=== PATIENT | female | born 1950 | race Caucasian/White ===

== ENCOUNTER 2016-10-31 18:43 | Inpatient (IN) | payer BC ==
[2016-10-31] MEDS ORDERED: ALBUTEROL SO4 2.5/IPRATROPIUM 0.5 INH SOL 3 ML VIAL.NEB. NEB ONE ×3 (20:16→22:29)
[2016-10-31] MEDS ORDERED: methylPREDNISolone NA SUCC 125 MG/2 ML VIAL IVPB ONE (20:17)
[2016-10-31] MEDS ORDERED: methylPREDNISolone NA SUCC 125 MG/2 ML VIAL ONE (20:24)
--- NOTE | 2016-10-31 20:29 | PDOC ---
History of Present Illness - History of Present Illness Initial Comments: 10/31/16 20:57 The patient is a 66 year old female, with a significant past medical history of hypertension and hyperlipidemia, who presents to the emergency department sent from PCP for hematochezia for two days. The patient states she has never experienced rectal bleeding in the past and states that her stool has been dark black for about 2 days. The patient states she had a rectal exam and stool guaiac that tested positive for blood and was referred to the ED today. The patient also reports exertional dyspnea. She denies chest pain, headache and dizziness. She denies fever, chills, nausea , vomit, diarrhea and constipation. She denies dysuria, frequency, urgency and hematuria. Allergies: Penicillin Social history: Tobacco use (1 pack daily) PCP - Dr. Marvel Chen ([phone]) <Vanda Rangel - Last Filed: 11/01/16 00:33> <Forrest Ybarra - Last Filed: 11/01/16 02:07> - General Chief Complaint: Rectal Bleed Stated Complaint: PCP SENT/WEAKNESS Time Seen by Provider: 10/31/16 19:39 Past History <Vanda Rangel - Last Filed: 11/01/16 00:33> - Past Medical History HTN: Yes Thyroid Disease: Yes - Psycho/Social/Smoking Cessation Hx Suicidal Ideation: No Smoking History: Current every day smoker Number of Cigarettes Smoked Daily: 20 Information on smoking cessation initiated: Yes 'Breaking Loose' booklet given: 10/31/16 Hx Alcohol Use: No Drug/Substance Use Hx: No Substance Use Type: None <Forrest Ybarra - Last Filed: 11/01/16 02:07> - Past Medical History Allergies/Adverse Reactions: Allergies Allergy/AdvReac Type Severity Reaction Status Date / Time Penicillins Allergy Verified 10/31/16 18:47 Home Medications: Ambulatory Orders NK [No Known Home Medication] 10/31/16 Review of Systems - Review of Systems Able to Perform ROS?: Yes Comments:: 10/31/16 20:57 CONSTITUTIONAL: No fever, no chills, no fatigue EYES: No visual changes ENT: No ear pain, no sore throat CARDIOVASCULAR: No chest pain, no palpitations RESPIRATORY: (+) cough and SOB GI: (+) hematochezia. No abdominal pain, no nausea, no vomiting, no constipation , no diarrhea GENITOURINARY: No dysuria, no frequency, no hematuria MUSKULOSKELETAL: No backpain, no joint pain, no myalgias SKIN: No rash NEURO: No headache <Vanda Rangel - Last Filed: 11/01/16 00:33> *Physical Exam - Vital Signs Last Vital Signs Temp Pulse Resp BP Pulse Ox 98.3 F 81 19 99/59 10/31/16 18:45 10/31/16 18:45 10/31/16 18:45 10/31/16 18:45 - Physical Exam Comments: 10/31/16 20:58 CONSTITUTIONAL: Well-appearing; well-nourished; in no apparent distress HEAD: Normocephalic; atraumatic EYES: PERRL; EOM intact ENMT: External appears normal; normal oropharynx NECK: Supple; non-tender; no cervical lymphadenopathy CARD: Normal S1, S2; no murmurs, rubs, or gallops RESP: Normal chest excursion with respiration; breath sounds clear and equal bilaterally; no wheezes, rhonchi, or rales ABD: Soft, non-distended; non-tender; no palpable organomegaly, no palpable hernias EXT: Normal ROM in all four extremities; non-tender to palpation; distal pulses intact SKIN: Warm, dry, no rash NEURO: No focal neurological deficiencies <Vanda Rangel - Last Filed: 11/01/16 00:33> - Vital Signs Last Vital Signs Temp Pulse Resp BP Pulse Ox 98.3 F 81 19 99/59 10/31/16 18:45 10/31/16 18:45 10/31/16 18:45 10/31/16 18:45 <Forrest Ybarra - Last Filed: 11/01/16 02:07> Heart Score/ECG Review - [place] Comment: 11/01/16 00:33 ECG was reviewed by Dr. Ybarra at 21:16 Impression: normal sinus rhythm Vent Rate: 78 bpm AL Interval: 160 ms QTc: 437 ms <Vanda Rangel - Last Filed: 11/01/16 00:33> ED Treatment Course - LABORATORY CBC & Chemistry Diagram: 10/31/16 21:00 10/31/16 21:00 <Vanda Rangel - Last Filed: 11/01/16 00:33> - LABORATORY CBC & Chemistry Diagram: 10/31/16 21:00 10/31/16 21:00 - RADIOLOGY Radiology Studies Ordered: Category Date Time Status CHEST PA & LAT [RAD] Stat Radiology 10/31/16 20:16 Ordered <Forrest Ybarra - Last Filed: 11/01/16 02:07> Medical Decision Making - Medical Decision Making 10/31/16 22:42 Dr. Marvel Chen was called at this time and a message was left with the phone answering service for a doctor to doctor consult. <Juan CarlosVanda - Last Filed: 11/01/16 00:33> - Medical Decision Making 11/01/16 00:29 Patient is a 66-year-old female with history of COPD, hypertension and hyperlipidemia who presents with several days of melena and lightheadedness. Patient also complaining of worsening shortness of breath with cough productive of clear sputum. Patient had been seen by her primary care physician for Dr. Weber who performed a stool guaiac which was noted to be positive. In the ER, patient is noted to be awake and alert, mildly tachypneic, with decreased air entry bilaterally and and expiratory wheezing. Patient is also noted to be significantly hypoxemic on room air with room air oxygen saturation of 84%, improving to 92% on 5 L via nasal cannula. Patient received continuous nebulizer therapy, Solu-Medrol and magnesium sulfate with mild improvement in her respiratory status. Oxygen saturation is improved to 94% on 5 L via nasal cannula. Chest x-ray reveals no evidence of infiltrate or effusion. CBC reveals elevated hemoglobin and hematocrit consistent with previous values. I suspect elevated hemoglobin and hematocrit are related to compensatory mechanism due to patient's COPD. I discussed the case with Dr. Mcnair. Patient will require rule out of pulmonary embolism considering the severity of hypoxemia and admission for further treatment of acute COPD exacerbation. 11/01/16 02:04 Patient reassessed. Patient is resting comfortably. Patient's oxygen saturation is noted to be 93% on 6 L via nasal cannula. Lung exam reveals persistent rhonchi bilaterally with decreased air entry bilaterally. CT of chest shows no evidence of acute PE, subsegmental atelectasis is noted. Patient 's symptoms are consistent with acute COPD exacerbation. Will admit as planned. <Forrest Ybarra - Last Filed: 11/01/16 02:07> *DC/Admit/Observation/Transfer - Attestations Scribe Attestion: 10/31/16 20:58 Documentation prepared by Vanda Rangel, acting as medical biller/coder for Forrest Ybarra MD <Vanda Rangel - Last Filed: 11/01/16 00:33> - Discharge Dispostion Admit: Yes - Attestations Physician Attestion: 11/01/16 00:29 The documentation was prepared by the scribe under my direct supervision. I have reviewed the documentation which correctly represents the findings, medical decision-making and critical action taken by me. <Forrest Ybarra - Last Filed: 11/01/16 02:07> Diagnosis at time of Disposition: Chronic obstructive pulmonary disease with acute exacerbation, Melena - Discharge Dispostion Condition at time of disposition: Fair - Referrals Referrals: Marvel Chen MD [Primary Care Provider] -
[2016-10-31 21:09] LABS: BASOPHIL 0.7 % (0-2.0); EOSINOPHIL 0.2 % (0-4.5); MCH 31.1 pg (25.7-33.7); MCHC 32.8 g/dl (32.0-36.0); MEAN CELL VOLUME 94.7 fl (80-96); MEAN PLT VOLUME 8.1 fl (7.5-11.1); NEUTROPHILS 49.9 % (42.8-82.8); PLATELET COUNT 211 K/MM3 (134-434); RDW 12.4 % (11.6-15.6); WHITE BLOOD COUNT 6.1 K/mm3 (4.0-10.0)
[2016-10-31 21:24] LABS: INR 1.09 (0.82-1.09)
[2016-10-31 21:36] LABS: ALBUMIN 3.9 g/dl (3.4-5.0); ANION GAP 8 (8-16); BILIRUBIN,TOTAL 0.4 mg/dL (0.2-1.0); CALCIUM 8.8 mg/dL (8.5-10.1); CO2 30 mmol/L (21-32); CREATININE 1.1 mg/dL (0.55-1.02); GLUCOSE,RANDOM 89 mg/dL (74-106); SGOT/AST 38 U/L (15-37); SGPT/ALT 55 U/L (12-78); TOT PROT 7.7 g/dl (6.4-8.2)
[2016-10-31 21:37] LABS: ALK PHOS 75 U/L (45-117)
[2016-10-31] MEDS ORDERED: SODIUM CHLORIDE 500 ML IV STA (21:49)
[2016-10-31] MEDS ORDERED: LEVOFLOXACIN 500 MG IVPB 100 ML IVPB ONE ×2 (22:29→22:44)
[2016-10-31] MEDS ORDERED: MAGNESIUM SULF 50% (8.12 MEQ/2 ML-1 GM VIAL) IVPB ONE (22:29)
[2016-10-31] MEDS ORDERED: MAGNESIUM SULF 50% (8.12 MEQ/2 ML-1 GM VIAL) ONE (22:43)
[2016-10-31 22:52] LABS: TROPONIN I < 0.02 ng/ml (0.00-0.05)
[2016-11-01] MEDS ORDERED: PANTOPRAZOLE SODIUM 40 MG in SODIUM CHLORIDE 100 ML IVPB ONE (00:59)
[2016-11-01] MEDS ORDERED: ALBUTEROL SO4 0.083% IH SOL 2.5 MG/3 ML VIAL.NEB. NEB ONE ×2 (00:59→02:13)
[2016-11-01] MEDS ORDERED: PANTOPRAZOLE SODIUM 100 ML IVPB ONE (02:13)
--- NOTE | 2016-11-01 04:18 | HP ---
CHIEF COMPLAINT: melena & SIMPS[facility] PCP: Dr. Chen HISTORY OF PRESENT ILLNESS: This is a 66 year old female with a past medical history of HTN, HLD and hypothyroidism who presented to the ED with c/o dark stools x 2 days. She also reports dyspnea on exertion. She has had a cough for about 3 weeks, productive with whitish/clear phlegm. She reports that she had begun to feel better around [place] so she went back to work the next week but worsened again around New Years and has been out of work since. She went to her PCP's office today for the black stool, who did a rectal and stool for guaiac which were both positive. She reports some nausea and loss of appetite but denies abdominal pain or vomiting. Denies chest pain or palpitations. ER course was notable for: (1) WBC 6.1 (2) H/H 16.6/50.7 (3) CTA chest negative for PE (4) SPO2 84%RA increased to 94 on 5LNC Recent Travel: pt denies PAST MEDICAL HISTORY: HTN HLD Hypothyroid Pt DENIES any h/o COPD and states she is on no inhalers or breathing medications at home PAST SURGICAL HISTORY: pt denies any Social History: Smokin PPD Alcohol: pt denies Drugs: pt denies Family History: mother age 68, declined rapidly after , had Crohns disease and CHF father age 69, brain tumor brother and sister with no known medical problems Allergies Penicillins Allergy (Verified 10/31/16 18:47) HOME MEDICATIONS: 3 Medication Instructions Recorded NK [No Known Home Medication] 10/31/16 REVIEW OF SYSTEMS CONSTITUTIONAL: Present: loss of appetite Absent: fever, chills, diaphoresis, generalized weakness, malaise, weight change HEENT: Absent: rhinorrhea, nasal congestion, throat pain, throat swelling, difficulty swallowing, mouth swelling, ear pain, eye pain, visual changes CARDIOVASCULAR: Absent: chest pain, syncope, palpitations, irregular heart rate, lightheadedness , peripheral edema RESPIRATORY: Present: cough, shortness of breath, dyspnea with exertion Absent: orthopnea, wheezing, stridor, hemoptysis GASTROINTESTINAL: Present: nausea, melena Absent: abdominal pain, abdominal distension, vomiting, diarrhea, constipation, hematochezia GENITOURINARY: Absent: dysuria, frequency, urgency, hesitancy, hematuria, flank pain, genital pain MUSCULOSKELETAL: Absent: myalgia, arthralgia, joint swelling, back pain, neck pain SKIN: Absent: rash, itching, pallor HEMATOLOGIC/IMMUNOLOGIC: Absent: easy bleeding, easy bruising, lymphadenopathy, frequent infections ENDOCRINE: Absent: unexplained weight gain, unexplained weight loss, heat intolerance, cold intolerance NEUROLOGIC: Absent: headache, focal weakness or paresthesias, dizziness, unsteady gait, seizure, mental status changes, bladder or bowel incontinence PSYCHIATRIC: Absent: anxiety, depression, suicidal or homicidal ideation, hallucinations. PHYSICAL EXAMINATION Vital Signs - 24 hr 3 10/31/16 10/31/16 11/01/16 18:45 22:30 00:00 Temperature 98.3 F Pulse Rate 81 Pulse Rate [ 85 68 Radial] Respiratory 19 18 18 Rate Blood Pressure 99/59 Blood Pressure 115/80 118/80 [Left Arm] O2 Sat by Pulse 100 92 L Oximetry (%) 3 11/01/16 04:39 Temperature Pulse Rate Pulse Rate [ 72 Radial] Respiratory 18 Rate Blood Pressure Blood Pressure 120/68 [Left Arm] O2 Sat by Pulse 90 L Oximetry (%) GENERAL: Awake, alert, and fully oriented, in no acute distress. HEAD: Normal with no signs of trauma. EYES: Pupils equal, round and reactive to light, extraocular movements intact, sclera anicteric, conjunctiva clear. No lid lag. EARS, NOSE, THROAT: Ears normal, nares patent, oropharynx clear without exudates. Moist mucous membranes. NECK: Normal range of motion, supple without lymphadenopathy, JVD, or masses. LUNGS: diminished, poor air movement, inspiratory and expiratory wheezing all lung [place] HEART: Regular rate and rhythm, normal S1 and S2 without murmur, rub or gallop. ABDOMEN: Soft, nontender, not distended, normoactive bowel sounds, no guarding, no rebound, no masses. No hepatomegaly or splenomegaly. MUSCULOSKELETAL: Normal range of motion at all joints. No bony deformities or tenderness. No CVA tenderness. UPPER EXTREMITIES: 2+ pulses, warm, well-perfused. No cyanosis. No clubbing. Cap refill <2 seconds. No peripheral edema. LOWER EXTREMITIES: 2+ pulses, warm, well-perfused. No calf tenderness. No peripheral edema. NEUROLOGICAL: Cranial nerves II-XII intact. Normal speech. Normal gait. PSYCHIATRIC: Cooperative. Good eye contact. Appropriate mood and affect. SKIN: Warm, dry, normal turgor, no rashes or lesions noted. Laboratory Results - last 24 hr 3 10/31/16 10/31/16 10/31/16 21:00 21:00 21:00 WBC 6.1 RBC 5.35 H Hgb 16.6 H Hct 50.7 H MCV 94.7 MCHC 32.8 RDW 12.4 Plt Count 211 D MPV 8.1 Neutrophils % 49.9 Lymphocytes % 36.6 Monocytes % 12.6 H Eosinophils % 0.2 Basophils % 0.7 INR 1.09 Sodium 137 Potassium 3.7 Chloride 99 Carbon Dioxide 30 Anion Gap 8 BUN 29 H D Creatinine 1.1 H D Creat Clearance w eGFR 50.01 Random Glucose 89 Calcium 8.8 Total Bilirubin 0.4 D AST 38 H D ALT 55 Alkaline Phosphatase 75 D Creatine Kinase 143 Troponin I < 0.02 Total Protein 7.7 Albumin 3.9 Blood Type O POSITIVE Antibody Screen Negative CXR: Impression: Cardiomegaly, no acute disease CTA chest: Impression: Scattered areas of subsegmental atelectasis are seen. No consolidations are observed. NO PULMONARY EMBOLISM. ECG: NSR rate 78, QTC 437, NO acute ST/T changes. possible old inferior and anterior infarcts ASSESSMENT/PLAN: 66yF with PMH HTN, HLD, Hypothyroidism who presented to the ED with melena and dyspnea on exertion and hypoxia. She is being admitted for COPD exacerbation and GI bleed. COPD exacerbation - given solumedrol 125mg IV, duoneb x 3, magnesium sulfate 2g IV in ED - cont solumedrol 60mg Q6H, taper as tolerated - duonebs q4h - if no improvement consider ABT for acute bronchitis Melena/GI bleed - protonix 40mg IVPB BID - NPO except meds - GI consult HTN - cont home medications HLD - cont home medications DVT PPX - hold anticoagulation given GI bleed, encourage ambulation FEN - NS @75cc/hr while NPO - repeat BMP ordered for 6am with mag and phos levels - NPO for now. Dispo: Pt currently requires inpatient care. Visit type - Emergency Visit Emergency Visit: Yes ED Registration Date: 11/01/16 Care time: The patient presented to the Emergency Department on the above date and was hospitalized for further evaluation of their emergent condition. - New Patient This patient is new to me today: Yes Date on this admission: 10/31/16 - Critical Care Critical Care patient: No
[2016-11-01] MEDS: methylPREDNISolone NA SUCC 40 MG/1 ML VIAL IVPB SCH ×4 (05:31→21:00)
[2016-11-01] MEDS: SODIUM CHLORIDE 1,000 ML IV SCH ×2 (05:32→16:12)
[2016-11-01] MEDS ORDERED: HEPARIN NA (PORCINE) 5,000 UNITS/ML 1ML VIAL SQ SCH (06:00)
[2016-11-01] MEDS: ALBUTEROL SO4 2.5/IPRATROPIUM 0.5 INH SOL 3 ML VIAL.NEB. NEB SCH ×5 (06:31→22:00)
[2016-11-01 08:41] LABS: BASOPHIL 0.2 % (0-2.0); MCH 32.2 pg (25.7-33.7); MCHC 33.6 g/dl (32.0-36.0); MEAN CELL VOLUME 95.7 fl (80-96); NEUTROPHILS 74.3 % (42.8-82.8); PLATELET COUNT 179 K/MM3 (134-434); RDW 12.3 % (11.6-15.6); WHITE BLOOD COUNT 2.5 K/mm3 (4.0-10.0)
[2016-11-01 08:58] LABS: CALCIUM 8.9 mg/dL (8.5-10.1); CREATININE 0.9 mg/dL (0.55-1.02); MAGNESIUM 2.8 mg/dL (1.8-2.4); PHOSPHOROUS 3.9 mg/dL (2.5-4.9)
[2016-11-01] MEDS: PANTOPRAZOLE SODIUM 100 ML IVPB SCH ×2 (11:35→22:57)
--- NOTE | 2016-11-01 12:11 | EKG ---
Test Reason : Blood Pressure : / mmHG Vent. Rate : 078 BPM Atrial Rate : 078 BPM P-R Int : 160 ms QRS Dur : 098 ms QT Int : 384 ms P-R-T Axes : 043 031 074 degrees QTc Int : 437 ms NORMAL SINUS RHYTHM POOR DATA QUALITY, INTERPRETATION MAY BE ADVERSELY AFFECTED POOR R WAVE PROGRESSION Confirmed by PILO RYAN MD ([id number]) on 11/01/2016 12:11:19 PM Referred By: Confirmed By:PILO RYAN MD
--- NOTE | 2016-11-01 13:59 | CONSULT ---
Consult Consult Specialty:: GI Referred by:: Hospitalist Reason for Consultation:: Melena - History of Present Illness Chief Complaint: Melena History of Present Illness: 66 F with h/o severe COPD, HLD, HTN, sent by her PCP for reported melena for 2 days. She denies NSAIDs . She has had "sinusitis" for the past 2 weeks but denies pain meds. She is being treated for COPD with steroids at this time. - History Source History Provided By: Patient, Medical Record Limitations to Obtaining History: No Limitations - Past Medical History Pulmonary: Yes: COPD, O2 Dependent - Alcohol/Substance Use Hx Alcohol Use: No - Smoking History Smoking history: Current every day smoker Aproximately how many cigarettes per day: 20 Home Medications - Allergies Allergies/Adverse Reactions: Allergies Allergy/AdvReac Type Severity Reaction Status Date / Time Penicillins Allergy Verified 10/31/16 18:47 - Home Medications Home Medications: Ambulatory Orders Amlodipine Besylate 5 mg PO BID 11/01/16 Isosorbide Mononitrate [Isosorbide Mononitrate ER] 60 mg PO 1000 11/01/16 Levothyroxine [Synthroid -] 75 mcg PO 0700 11/01/16 Liothyronine Sodium [Cytomel -] 5 mcg PO 0700 11/01/16 Metoprolol Succinate [Toprol Xl] 50 mg PO 2200 11/01/16 Metoprolol Succinate [Toprol Xl] 100 mg PO 1000 11/01/16 Non-Formulary 1 tab PO 0700 11/01/16 Physical Exam-GI Vital Signs: Vital Signs Temperature 98.1 F 11/01/16 08:46 Pulse Rate 75 11/01/16 12:00 Respiratory Rate 18 11/01/16 12:00 Blood Pressure 118/67 11/01/16 12:00 O2 Sat by Pulse Oximetry (%) 93 L 11/01/16 12:00 Constitutional: Yes: Obese HENT: Yes: Normocephalic Neck: Yes: Supple Cardiovascular: Yes: Regular Rate and Rhythm Respiratory: Yes: Wheezes ...Palpate: Yes: Soft. No: Tenderness Labs: CBC, BMP 11/01/16 08:00 11/01/16 08:00 INR, PTT INR 1.09 (0.82-1.09) 10/31/16 21:00 Hepatic Panel Total Bilirubin 0.4 mg/dL (0.2-1.0) D 10/31/16 21:00 AST 38 U/L (15-37) H D 10/31/16 21:00 ALT 55 U/L (12-78) 10/31/16 21:00 Alkaline Phosphatase 75 U/L (45-117) D 10/31/16 21:00 Albumin 3.9 g/dl (3.4-5.0) 10/31/16 21:00 Assessment/Plan Patient with UGIB now stopped. Hgb 16. Unclear etiology Rec EGD once respiratory status stabilized Protonix drip as pat on steroids Clear liquid diet
[2016-11-01 17:49] VITALS: BMI 33.2
[2016-11-02] MEDS: ALBUTEROL SO4 2.5/IPRATROPIUM 0.5 INH SOL 3 ML VIAL.NEB. NEB SCH ×6 (02:00→22:35)
[2016-11-02] MEDS: methylPREDNISolone NA SUCC 40 MG/1 ML VIAL IVPB SCH ×3 (02:34→15:18)
[2016-11-02 07:44] LABS: CALCIUM 9.4 mg/dL (8.5-10.1); CREATININE 0.7 mg/dL (0.55-1.02); MAGNESIUM 2.1 mg/dL (1.8-2.4); PHOSPHOROUS 3.7 mg/dL (2.5-4.9)
[2016-11-02] MEDS: PANTOPRAZOLE SODIUM 100 ML IVPB SCH ×2 (09:53→21:43)
--- NOTE | 2016-11-02 11:49 | PN ---
GI Progress Note Subjective: chart reviewed, further hisotry revealed that patient has guaiac postive stool in the her doctors office, had 2 episodes of melena last night,for the past 10 hours there were no further bleeding noted, denies chest pain, LOC, near syncope , had URI since 3rd week of September, no NSAID and no Aspirin use - Objective Vital Signs: Vital Signs Temperature 97.9 F 11/02/16 07:40 Pulse Rate 79 11/02/16 07:40 Respiratory Rate 18 11/02/16 07:40 Blood Pressure 116/65 11/02/16 07:40 O2 Sat by Pulse Oximetry (%) 93 L 11/01/16 21:00 Constitutional: Obese Eyes: Yes: Conjunctiva Clear HENT: Yes: Atraumatic Neck: Yes: Supple Cardiovascular: Yes: Regular Rate and Rhythm Respiratory: Yes: CTA Bilaterally ...Palpate: Yes: Soft. No: Firm/Rigid, Guarding, Hepatomegaly, Mass, Pulsatile Mass, Splenomegaly, Tenderness Labs: CBC, BMP 11/01/16 08:00 11/02/16 06:00 INR, PTT INR 1.09 (0.82-1.09) 10/31/16 21:00 Problem List - Problems (1) Melena Assessment/Plan: --resolving R> for EGD Friday clear liquids for now, discussed clinical findings at length agreed with management Code(s): K92.1 - MELENA
[2016-11-02] MEDS: SODIUM CHLORIDE 1,000 ML IV SCH (13:18)
--- NOTE | 2016-11-02 16:01 | PN ---
Physical Exam: SUBJECTIVE: Patient seen and examined. She is feeling jittery because she has not had the correct ratio of carbs to protein. She denies further melena OBJECTIVE: Vital Signs Period Temp Pulse Resp BP Sys/Gonzalez Pulse Ox Last 24 Hr 97.5 F-98.1 F 70-81 18-20 105-138/60-78 93-95 PE Gen: fully conversational Neuro: alert, awake, cn 2-12intact Pulm: diminished, bi basilar rhonchi + cough + ns CV: s1 s2 rrr no mrg Abs: s nt nd +bs Ext: warm no edema Laboratory Results - last 24 hr 11/01/16 11/02/16 23:09 06:00 Sodium 144 Potassium 4.3 Chloride 102 Carbon Dioxide 30 Anion Gap 12 BUN 19 H D Creatinine 0.7 D POC Glucometer 170 Random Glucose 148 H D Calcium 9.4 Phosphorus 3.7 Magnesium 2.1 D Current Medications Generic Name Dose Route Start Last Admin Trade Name Freq PRN Reason Stop Dose Admin Albuterol/Ipratropium 1 amp 11/01/16 06:00 11/02/16 10:10 Duoneb - NEB 1 amp Q4HPO SHYANNE Administration Amlodipine Besylate 5 mg 11/02/16 22:00 Norvasc - PO BID SHYANNE Pantoprazole Sodium 100 mls @ 200 mls/hr 11/01/16 10:00 11/02/16 09:53 Protonix 40mg Ivpb (Pre-Docked) IVPB 200 mls/hr BID SHYANNE Administration Levofloxacin 100 mls @ 100 mls/hr 11/02/16 16:15 Levaquin 500 Mg Premixed Ivpb - IVPB DAILY SHYANNE Isosorbide Mononitrate 60 mg 11/02/16 16:30 Imdur - PO DAILY SHYANNE Levothyroxine Sodium 75 mcg 11/02/16 16:30 Synthroid - PO DAILY@0700 SHYANNE Liothyronine Sodium 5 mcg 11/02/16 16:30 Cytomel - PO DAILY@0700 SHYANNE Methylprednisolone Sodium Succinate 40 mg 11/03/16 02:00 Solu-Medrol - IVPB Q8H-IV SHYANNE Metoprolol Succinate 50 mg 11/02/16 22:00 Toprol Xl - PO HS SHAYNNE Metoprolol Succinate 100 mg 11/03/16 10:00 Toprol Xl - PO DAILY SHYANNE Assessment: 66 year old female with PMH HTN, HLD, Hypothyroidism admitted with melena, dyspnea on exertion and hypoxia. Plan: 1. COPD exacerbation - Wheezing improved - Taper medrol 40mg q8h - Resume levaquin 500mg daily (day 2) - Sputum cx - Duonebs q4 2. Melena/GI bleed - Pt states she remembers seeing traces of bright red blood on her TP before the melena event - Clears for now, if no bleeding advance diet in AM - Protonix BID - EGD Friday - GI assistance appreciated 3. HTN - Toprol xl 100mg AM - Toprol xl 50mg HS - Discontinue norvasc - Imdur 60mg daily 4. Hypothyroid - Synthroid 75mcg daily - Cytomel 5mcg daily - Check TSH level 5. DVT PPX - Hold AC Visit type - Emergency Visit Emergency Visit: Yes ED Registration Date: 11/01/16 Care time: The patient presented to the Emergency Department on the above date and was hospitalized for further evaluation of their emergent condition. - New Patient This patient is new to me today: Yes Date on this admission: 11/02/16 - Critical Care Critical Care patient: No
[2016-11-02] MEDS: ISOSORBIDE MONONITRATE 60 MG TAB.SR.24H (FP) PO SCH (17:45)
[2016-11-02] MEDS: LEVOFLOXACIN 500 MG IVPB 100 ML IVPB SCH (17:45)
[2016-11-02] MEDS: LEVOTHYROXINE NA 75 MCG TABLET (FP) PO SCH (17:45)
[2016-11-02] MEDS: LIOTHYRONINE SODIUM 5 MCG TABLET PO SCH (21:42)
[2016-11-02] MEDS: METOPROLOL SUCCINATE 50 MG TAB.SR.24H (FP) PO SCH (21:43)
[2016-11-02] MEDS ORDERED: METOPROLOL SUCCINATE 50 MG TAB.SR.24H (FP) PO SCH (22:00)
[2016-11-02] MEDS ORDERED: amLODIPine BESYLATE 5 MG TABLET (FP) PO SCH (22:00)
[2016-11-03] MEDS: methylPREDNISolone NA SUCC 40 MG/1 ML VIAL IVPB SCH ×3 (01:40→18:20)
[2016-11-03] MEDS ORDERED: PT OWN MED DRAWER 7, Y5N ONE (01:56)
[2016-11-03] MEDS: ALBUTEROL SO4 2.5/IPRATROPIUM 0.5 INH SOL 3 ML VIAL.NEB. NEB SCH ×6 (02:25→22:05)
[2016-11-03] MEDS: LIOTHYRONINE SODIUM 5 MCG TABLET PO SCH (06:55)
[2016-11-03] MEDS: LEVOTHYROXINE NA 75 MCG TABLET (FP) PO SCH (06:55)
[2016-11-03] MEDS ORDERED: LIOTHYRONINE SODIUM 5 MCG TABLET PO SCH (07:00)
[2016-11-03 07:30] LABS: BASOPHIL 0.1 % (0-2.0); MCH 32.2 pg (25.7-33.7); MCHC 33.8 g/dl (32.0-36.0); MEAN CELL VOLUME 95.5 fl (80-96); MEAN PLT VOLUME 8.1 fl (7.5-11.1); NEUTROPHILS 87.4 % (42.8-82.8); PLATELET COUNT 200 K/MM3 (134-434); RDW 12.7 % (11.6-15.6); WHITE BLOOD COUNT 8.8 K/mm3 (4.0-10.0)
[2016-11-03 08:02] LABS: CALCIUM 9.2 mg/dL (8.5-10.1); CREATININE 0.7 mg/dL (0.55-1.02)
[2016-11-03 08:10] LABS: THYROID STIMULATING HORMONE 0.11 uIU/ml (0.358-3.74)
[2016-11-03] MEDS ORDERED: ISOSORBIDE MONONITRATE 60 MG TAB.SR.24H (FP) PO SCH (10:00)
[2016-11-03] MEDS ORDERED: METOPROLOL SUCCINATE 100 MG TAB.SR.24H (FP) PO SCH (10:00)
[2016-11-03] MEDS: PANTOPRAZOLE SODIUM 100 ML IVPB SCH ×2 (10:27→22:05)
[2016-11-03] MEDS: ISOSORBIDE MONONITRATE 60 MG TAB.SR.24H (FP) PO SCH (10:27)
[2016-11-03] MEDS: METOPROLOL SUCCINATE 100 MG TAB.SR.24H (FP) PO SCH (10:27)
[2016-11-03] MEDS: LEVOFLOXACIN 500 MG IVPB 100 ML IVPB SCH (10:32)
--- NOTE | 2016-11-03 10:40 | PN ---
Physical Exam: SUBJECTIVE: Patient seen and examined. She stated she did not sleep well because of going to the bathroom and having bowel movements. SOB improved 24 Events: + guiac stool OBJECTIVE: Vital Signs Period Temp Pulse Resp BP Sys/Gonzalez Pulse Ox Last 24 Hr 97.4 F-98.4 F 70-85 18-20 116-137/60-71 93 PE Gen: fully conversational Neuro: alert, awake, cn 2-12intact Pulm: diminished, bi basilar crackles + dry cough, inspiration improved CV: s1 s2 rrr no mrg Abs: s nt nd +bs Ext: warm no edema Laboratory Results - last 24 hr 11/02/16 11/03/16 11/03/16 18:00 06:00 06:00 WBC 8.8 D RBC 4.28 Hgb 13.8 D Hct 40.8 MCV 95.5 MCHC 33.8 RDW 12.7 Plt Count 200 MPV 8.1 Neutrophils % 87.4 H Lymphocytes % 10.0 D Monocytes % 2.5 L Eosinophils % 0.0 Basophils % 0.1 Sodium 142 Potassium 3.5 Chloride 105 Carbon Dioxide 28 Anion Gap 9 BUN 14 D Creatinine 0.7 Random Glucose 165 H Calcium 9.2 TSH 0.11 L Stool Occult Blood Positive Active Medications Generic Name Dose Route Start Last Admin Trade Name Yefri PRN Reason Stop Dose Admin Albuterol/Ipratropium 1 amp 11/01/16 06:00 11/03/16 06:35 Duoneb - NEB 1 amp Q4HPO SHYANNE Administration Pantoprazole Sodium 100 mls @ 200 mls/hr 11/01/16 10:00 11/03/16 10:27 Protonix 40mg Ivpb (Pre-Docked) IVPB 200 mls/hr BID SHYANNE Administration Levofloxacin 100 mls @ 100 mls/hr 11/02/16 16:15 11/03/16 10:32 Levaquin 500 Mg Premixed Ivpb - IVPB 100 mls/hr DAILY SHYANNE Administration Isosorbide Mononitrate 60 mg 11/02/16 16:30 11/03/16 10:27 Imdur - PO 60 mg DAILY SHYANNE Administration Levothyroxine Sodium 75 mcg 11/02/16 16:30 11/03/16 06:55 Synthroid - PO 75 mcg DAILY@0700 SHYANNE Administration Liothyronine Sodium 5 mcg 11/02/16 16:30 11/03/16 06:55 Cytomel - PO 5 mcg DAILY@0700 SHYANNE Administration Methylprednisolone Sodium Succinate 40 mg 11/03/16 02:00 11/03/16 10:27 Solu-Medrol - IVPB 40 mg Q8H-IV SHYANNE Administration Metoprolol Succinate 50 mg 11/02/16 22:00 11/02/16 21:43 Toprol Xl - PO 50 mg HS SHYANNE Administration Metoprolol Succinate 100 mg 11/03/16 10:00 11/03/16 10:27 Toprol Xl - PO 100 mg DAILY SHYANNE Administration Assessment: 66 year old female with PMH HTN, HLD, Hypothyroidism admitted with melena, dyspnea on exertion and hypoxia. Plan: 1. COPD exacerbation - Medrol 40mg q8h, consider taper tomorrow - Levaquin 500mg daily (day 3) - Sputum cx pending - Duonebs q4 standing 2. Melena/GI bleed - Repeat + stool occult - Collect C diff - Continue clears, NPO after midnight - Protonix BID - For EGD tomorrow - GI seeing 3. HTN - Toprol xl 100mg AM - Toprol xl 50mg HS - Imdur 60mg daily 4. Hypothyroid - TSH level decreased - Will decrease synthroid 50mcg daily - Cytomel 5mcg daily - Recheck TSH in 6 weeks 5. DVT PPX - Hold AC d/t GI bleed Visit type - Emergency Visit Emergency Visit: Yes ED Registration Date: 11/01/16 Care time: The patient presented to the Emergency Department on the above date and was hospitalized for further evaluation of their emergent condition. - New Patient This patient is new to me today: No - Critical Care Critical Care patient: No
--- NOTE | 2016-11-03 16:07 | PN ---
GI Progress Note Subjective: no melena, tolerating full liquids, non-productive cough - Objective Vital Signs: Vital Signs Temperature 98.3 F 11/03/16 14:56 Pulse Rate 85 11/03/16 14:56 Respiratory Rate 20 11/03/16 14:56 Blood Pressure 114/61 11/03/16 14:56 O2 Sat by Pulse Oximetry (%) 93 L 11/03/16 12:27 Constitutional: Well Nourished Eyes: Yes: Conjunctiva Clear HENT: Yes: Atraumatic Neck: Yes: Supple Cardiovascular: Yes: Regular Rate and Rhythm Respiratory: Yes: CTA Bilaterally ...Palpate: Yes: Soft. No: Firm/Rigid, Guarding, Hepatomegaly, Mass, Pulsatile Mass, Splenomegaly, Tenderness Labs: CBC, BMP 11/03/16 06:00 11/03/16 06:00 INR, PTT INR 1.09 (0.82-1.09) 10/31/16 21:00 Problem List - Problems (1) Melena Assessment/Plan: resolved R> for EGD in am Code(s): K92.1 - MELENA
[2016-11-03] MEDS: METOPROLOL SUCCINATE 50 MG TAB.SR.24H (FP) PO SCH (22:07)
[2016-11-04] MEDS: methylPREDNISolone NA SUCC 40 MG/1 ML VIAL IVPB SCH ×3 (01:29→18:25)
[2016-11-04] MEDS: ALBUTEROL SO4 2.5/IPRATROPIUM 0.5 INH SOL 3 ML VIAL.NEB. NEB SCH ×6 (02:04→23:45)
[2016-11-04] MEDS: LIOTHYRONINE SODIUM 5 MCG TABLET PO SCH (06:03)
[2016-11-04] MEDS: LEVOTHYROXINE NA 50 MCG TABLET (FP) PO SCH (06:03)
[2016-11-04] MEDS ORDERED: LIDOCAINE HCL/PF 1% SDV 5ML VIAL ONE (07:49)
[2016-11-04 08:06] LABS: BASOPHIL 0.1 % (0-2.0); MCH 32.4 pg (25.7-33.7); MEAN CELL VOLUME 95.5 fl (80-96); MEAN PLT VOLUME 8.1 fl (7.5-11.1); NEUTROPHILS 89.8 % (42.8-82.8); PLATELET COUNT 215 K/MM3 (134-434); RDW 12.5 % (11.6-15.6)
[2016-11-04 08:20] LABS: CALCIUM 9.6 mg/dL (8.5-10.1); CREATININE 0.7 mg/dL (0.55-1.02)
--- NOTE | 2016-11-04 08:20 | PN ---
Progress Note (short form) - Note Progress Note: ADDENDUM: S/P EGD with finding of likely shon esophagitis, mild duodenitis in the duodenal bulb. Otherwise normal. No source of GI bleeding noted. Hgb has been relatively stable with drop since admission likely secondary to Will need colonoscopy. Will schedule for tomorrow AM
[2016-11-04] MEDS ORDERED: PT OWN MED DRAWER 7, Y5N ONE ×2 (11:17→18:43)
[2016-11-04] MEDS: PANTOPRAZOLE SODIUM 100 ML IVPB SCH ×2 (11:25→22:36)
[2016-11-04] MEDS: LEVOFLOXACIN 500 MG IVPB 100 ML IVPB SCH (11:25)
[2016-11-04] MEDS: METOPROLOL SUCCINATE 100 MG TAB.SR.24H (FP) PO SCH (11:25)
[2016-11-04] MEDS: ISOSORBIDE MONONITRATE 60 MG TAB.SR.24H (FP) PO SCH (11:25)
--- NOTE | 2016-11-04 13:07 | PN ---
Physical Exam: SUBJECTIVE: Patient seen and examined. She walking around the room, tolerating room air, in no acute distress. She denies discomfort or abdominal pain. OBJECTIVE: Vital Signs Period Temp Pulse Resp BP Sys/Gonzalez Pulse Ox Last 24 Hr 97.9 F-98.3 F 78-88 16-21 111-152/51-86 85-96 GENERAL: The patient is awake, alert, and fully oriented, in no acute distress. HEAD: Normal with no signs of trauma. EYES: sclera anicteric, conjunctiva clear. No ptosis. ENT: Ears normal, nares patent, oropharynx clear without exudates, moist mucous membranes. NECK: Trachea midline, full range of motion, supple. LUNGS: Bilateral lung sounds clear/diminished. No wheezing. HEART: Regular rate and rhythm, S1, S2 without murmur, rub or gallop. ABDOMEN: Soft, distended, + bowel sounds EXTREMITIES: 2+ pulses, warm, well-perfused. NEUROLOGICAL: Normal speech, gait not observed. PSYCH: Normal mood, normal affect. SKIN: Warm, dry, normal turgor, no rashes or lesions noted Laboratory Results - last 24 hr 11/03/16 11/04/16 11/04/16 22:12 06:05 06:05 WBC 8.0 RBC 4.58 Hgb 14.9 Hct 43.8 MCV 95.5 MCHC 34.0 RDW 12.5 Plt Count 215 MPV 8.1 Neutrophils % 89.8 H Lymphocytes % 7.4 L D Monocytes % 2.7 L Eosinophils % 0.0 Basophils % 0.1 Sodium 140 Potassium 3.9 Chloride 104 Carbon Dioxide 35 H D Anion Gap 1 L BUN 9 D Creatinine 0.7 POC Glucometer 137 Random Glucose 138 H Calcium 9.6 11/04/16 06:32 WBC RBC Hgb Hct MCV MCHC RDW Plt Count MPV Neutrophils % Lymphocytes % Monocytes % Eosinophils % Basophils % Sodium Potassium Chloride Carbon Dioxide Anion Gap BUN Creatinine POC Glucometer 135 Random Glucose Calcium Active Medications Generic Name Dose Route Start Last Admin Trade Name Freq PRN Reason Stop Dose Admin Albuterol/Ipratropium 1 amp 11/01/16 06:00 11/04/16 09:19 Duoneb - NEB 1 amp Q4HPO SHYANNE Administration Bisacodyl 10 mg 11/04/16 16:00 Dulcolax - PO 11/04/16 16:01 ONCE ONE Bisacodyl 10 mg 11/04/16 20:00 Dulcolax - PO 11/04/16 20:01 ONCE ONE Pantoprazole Sodium 100 mls @ 200 mls/hr 11/01/16 10:00 11/04/16 11:25 Protonix 40mg Ivpb (Pre-Docked) IVPB 200 mls/hr BID SHYANNE Administration Levofloxacin 100 mls @ 100 mls/hr 11/02/16 16:15 11/04/16 11:25 Levaquin 500 Mg Premixed Ivpb - IVPB 100 mls/hr DAILY SHYANNE Administration Isosorbide Mononitrate 60 mg 11/02/16 16:30 11/04/16 11:25 Imdur - PO 60 mg DAILY SHYANNE Administration Levothyroxine Sodium 50 mcg 11/04/16 07:00 11/04/16 06:03 Synthroid - PO Not Given DAILY@0700 SHYANNE Liothyronine Sodium 5 mcg 11/02/16 16:30 11/04/16 06:03 Cytomel - PO Not Given DAILY@0700 SHYANNE Methylprednisolone Sodium Succinate 40 mg 11/03/16 02:00 11/04/16 11:25 Solu-Medrol - IVPB 40 mg Q8H-IV SHYANNE Administration Metoprolol Succinate 50 mg 11/02/16 22:00 11/03/16 22:07 Toprol Xl - PO 50 mg HS SHYANNE Administration Metoprolol Succinate 100 mg 11/03/16 10:00 11/04/16 11:25 Toprol Xl - PO 100 mg DAILY SHYANNE Administration Nystatin 500,000 unit 11/04/16 14:00 Mycolog - PO TID SHYANNE Polyethylene Glycol 255 gm 11/04/16 16:00 Miralax (For Bowel Prep) - PO 11/04/16 16:01 ONCE ONE ASSESSMENT/PLAN: Patient is a 66 year old female with a significant past medical history of hypertension, hyperlipidemia and hypothyroidism who presented to the ER on 2015 with dark stools x 2 days, dyspnea on exertion and hypoxia. In the ED she reported a productive cough for apx 3 weeks with clear phlegm. She denies any abdominal pain, nausea, vomiting. She further denies any chest pain or palpitation. Pulmonary: COPD exacerbation - acute Assessment/Plan: On Solumedrol 40mg q8, Dubnebs, oxygen as needed and Levaquin 500mg daily (started on 11/02/2015). Will taper steroids to 30mg q8 and monitor Monitor respiratory status, oxygenation and response to steroid taper GI: Gi Bleed - acute Assessment/Plan: Had EGD today which showed findings likely shon esophagitis, mild duodenitis in the duodenal bulb On Protonix 40mg BID, colonoscopy tomorrow NPO at midnight Cardiology: Hyptertension - chronic Assessment/Plan: Hypertension controlled on Metoprolol XL 100mg daily, Toprol 50mg at HS and Imdur 60mg daily Monitor BPs F.E.N. Fluids: NPO at midnight, will order gentle hydration of NS @50cc/hr once NPO Electrolytes: within normal limits Nutrition: Clears, NPO at midnight Prophylaxis: DVT: ambulatory, AC contraindicated secondary to GI bleed GI: Protonix BID, Miralax bowel pre; for colonoscpy tomorrow Disposition: Requires inpatient hospitalization. Full Code. Visit type - Emergency Visit Emergency Visit: Yes ED Registration Date: 11/01/16 Care time: The patient presented to the Emergency Department on the above date and was hospitalized for further evaluation of their emergent condition. - New Patient This patient is new to me today: Yes Date on this admission: 11/04/16 - Critical Care Critical Care patient: No - Discharge Referral Referred to [facility] Med P.C.: No
[2016-11-04] MEDS: NYSTATIN 500,000 UNITS TABLET PO SCH ×2 (15:38→23:10)
[2016-11-04] MEDS ORDERED: BISACODYL 5 MG TABLET.DR (FP) PO ONE ×3 (16:00→22:45)
[2016-11-04] MEDS ORDERED: POLYETHYLENE GLYCOL 3350 255 GM BTL PO ONE (16:00)
--- NOTE | 2016-11-04 17:07 | EKG ---
Test Reason : Blood Pressure : / mmHG Vent. Rate : 078 BPM Atrial Rate : 078 BPM P-R Int : 176 ms QRS Dur : 098 ms QT Int : 382 ms P-R-T Axes : 067 053 072 degrees QTc Int : 435 ms NORMAL SINUS RHYTHM POSSIBLE LEFT ATRIAL ENLARGEMENT BORDERLINE ECG WHEN COMPARED WITH ECG OF 31-OCT-2016 21:10, NO SIGNIFICANT CHANGE WAS FOUND Confirmed by SAPPHIRE COHEN MD ([id number]) on 11/04/2016 5:06:57 PM Referred By: Confirmed By:SAPPHIRE COHEN MD
[2016-11-04] MEDS: METOPROLOL SUCCINATE 50 MG TAB.SR.24H (FP) PO SCH (22:51)
[2016-11-05] MEDS ORDERED: SODIUM CHLORIDE 1,000 ML IV SCH
[2016-11-05] MEDS: methylPREDNISolone NA SUCC 40 MG/1 ML VIAL IVPB SCH ×3 (01:10→21:43)
[2016-11-05] MEDS: ALBUTEROL SO4 2.5/IPRATROPIUM 0.5 INH SOL 3 ML VIAL.NEB. NEB SCH ×6 (02:20→23:00)
[2016-11-05] MEDS ORDERED: SODIUM PHOSPHATE/NA BIPHOS 133 ML ENEMA PR ONE (06:00)
[2016-11-05] MEDS: NYSTATIN 500,000 UNITS TABLET PO SCH ×3 (06:07→21:44)
[2016-11-05] MEDS: LIOTHYRONINE SODIUM 5 MCG TABLET PO SCH (06:07)
[2016-11-05] MEDS: LEVOTHYROXINE NA 50 MCG TABLET (FP) PO SCH (06:08)
[2016-11-05 06:53] LABS: BASOPHIL 0.1 % (0-2.0); MCH 32.3 pg (25.7-33.7); MEAN PLT VOLUME 7.9 fl (7.5-11.1); NEUTROPHILS 91.8 % (42.8-82.8); PLATELET COUNT 229 K/MM3 (134-434); RDW 12.6 % (11.6-15.6); WHITE BLOOD COUNT 7.6 K/mm3 (4.0-10.0)
[2016-11-05 08:02] LABS: ALBUMIN 3.6 g/dl (3.4-5.0); ALK PHOS 60 U/L (45-117); ANION GAP 12 (8-16); BILIRUBIN,TOTAL 0.7 mg/dL (0.2-1.0); CALCIUM 9.4 mg/dL (8.5-10.1); CO2 29 mmol/L (21-32); CREATININE 0.7 mg/dL (0.55-1.02); GLUCOSE,RANDOM 151 mg/dL (74-106); SGOT/AST 21 U/L (15-37); SGPT/ALT 57 U/L (12-78); TOT PROT 7.1 g/dl (6.4-8.2)
[2016-11-05] MEDS: KCL 10 MEQ IVPB 100 ML IVPB SCH ×2 (09:19→12:50)
[2016-11-05] MEDS: ISOSORBIDE MONONITRATE 60 MG TAB.SR.24H (FP) PO SCH (09:21)
[2016-11-05] MEDS: METOPROLOL SUCCINATE 100 MG TAB.SR.24H (FP) PO SCH (09:21)
[2016-11-05] MEDS: LEVOFLOXACIN 500 MG IVPB 100 ML IVPB SCH (09:22)
[2016-11-05] MEDS: PANTOPRAZOLE SODIUM 100 ML IVPB SCH ×2 (09:23→21:43)
--- NOTE | 2016-11-05 12:53 | PN ---
Physical Exam: SUBJECTIVE: Patient seen and examined. States she feels well, denies any pain or dyspnea. Awaiting colonoscopy. OBJECTIVE: GENERAL: The patient is awake, alert, and fully oriented, in no acute distress. HEAD: Normal with no signs of trauma. EYES: sclera anicteric, conjunctiva clear. No ptosis. ENT: Ears normal, nares patent, oropharynx clear without exudates, moist mucous membranes. NECK: Trachea midline, full range of motion, supple. LUNGS: Bilateral lung sounds clear/diminished. No wheezing. HEART: Regular rate and rhythm, S1, S2 without murmur, rub or gallop. ABDOMEN: Soft, distended, + bowel sounds EXTREMITIES: 2+ pulses, warm, well-perfused. NEUROLOGICAL: Normal speech, gait not observed. PSYCH: Normal mood, normal affect. SKIN: Warm, dry, normal turgor, no rashes or lesions noted Vital Signs Period Temp Pulse Resp BP Sys/Gonzalez Pulse Ox Last 24 Hr 97.4 F-98.2 F 54-86 18-20 120-145/66-87 90-96 Laboratory Results - last 24 hr 11/05/16 11/05/16 05:35 05:35 WBC 7.6 RBC 4.94 Hgb 15.9 H Hct 46.9 H MCV 95.0 MCHC 34.0 RDW 12.6 Plt Count 229 MPV 7.9 Neutrophils % 91.8 H Lymphocytes % 5.9 L D Monocytes % 2.2 L Eosinophils % 0.0 Basophils % 0.1 Sodium 143 Potassium 3.3 L Chloride 102 Carbon Dioxide 29 Anion Gap 12 BUN 10 Creatinine 0.7 Creat Clearance w eGFR > 60 Random Glucose 151 H Calcium 9.4 Total Bilirubin 0.7 D AST 21 D ALT 57 Alkaline Phosphatase 60 Total Protein 7.1 Albumin 3.6 Active Medications Generic Name Dose Route Start Last Admin Trade Name Freq PRN Reason Stop Dose Admin Albuterol/Ipratropium 1 amp 11/01/16 06:00 11/05/16 09:15 Duoneb - NEB 1 amp Q4HPO SHYANNE Administration Amlodipine Besylate 5 mg 11/06/16 10:00 Norvasc - PO DAILY SHYANNE Pantoprazole Sodium 100 mls @ 200 mls/hr 11/01/16 10:00 11/05/16 09:23 Protonix 40mg Ivpb (Pre-Docked) IVPB 200 mls/hr BID SHYANNE Administration Levofloxacin 100 mls @ 100 mls/hr 11/02/16 16:15 11/05/16 09:22 Levaquin 500 Mg Premixed Ivpb - IVPB 100 mls/hr DAILY SHYANNE Administration Sodium Chloride 1,000 mls @ 50 mls/hr 11/05/16 00:00 11/05/16 01:09 Normal Saline - IV 11/05/16 13:14 50 mls/hr ASDIR SHYANNE Administration Isosorbide Mononitrate 60 mg 11/02/16 16:30 11/05/16 09:21 Imdur - PO 60 mg DAILY SHYANNE Administration Levothyroxine Sodium 50 mcg 11/04/16 07:00 11/05/16 06:08 Synthroid - PO Not Given DAILY@0700 SHYANNE Liothyronine Sodium 5 mcg 11/02/16 16:30 11/05/16 06:07 Cytomel - PO Not Given DAILY@0700 SHYANNE Methylprednisolone Sodium Succinate 30 mg 11/04/16 18:00 11/05/16 09:22 Solu-Medrol - IVPB 30 mg Q8H-IV SHYANNE Administration Metoprolol Succinate 50 mg 11/02/16 22:00 11/04/16 22:51 Toprol Xl - PO 50 mg HS SHYANNE Administration Metoprolol Succinate 100 mg 11/03/16 10:00 11/05/16 09:21 Toprol Xl - PO 100 mg DAILY SHYANNE Administration Nystatin 500,000 unit 11/04/16 14:00 11/05/16 06:07 Mycolog - PO Not Given TID SHYANNE ASSESSMENT/PLAN: Patient is a 66 year old female with a significant past medical history of hypertension, hyperlipidemia and hypothyroidism who presented to the ER on 2015 with dark stools x 2 days, dyspnea on exertion and hypoxia. In the ED she reported a productive cough for apx 3 weeks with clear phlegm. She denies any abdominal pain, nausea, vomiting. She further denies any chest pain or palpitation. Pulmonary: COPD exacerbation - acute on a chronic condition Assessment/Plan: On Solumedrol 30mg q8, Dubnebs, oxygen PRN and Levaquin 500mg daily (started on 11/02/2015). Will continue to taper steroids to 20mg BID, then transition to PO tomorrow in anticipation of d/c Monitor respiratory status, oxygenation and response to steroid taper Sputum culture with yeast like growth, awaiting final read. She is asymptomatic : no hemoptysis. If becomes symptomatic, will order CT scan ID consulted Respiratory pre/and post oxygenation to eval for home oxygen use GI: Gi Bleed - acute Assessment/Plan: Had EGD yesterday which showed findings likely shon esophagitis, mild duodenitis in the duodenal bulb On Protonix 40mg BID, colonoscopy today NPO for procedure Cardiology: Hypertension - chronic Assessment/Plan: Hypertension controlled on Metoprolol XL 100mg daily, Toprol 50mg at HS and Imdur 60mg daily Monitor BPs, added Amlodipine 5mg daily F.E.N. Fluids: NPO for colonoscopy Electrolytes: within normal limits Nutrition: NPO for now Prophylaxis: DVT: ambulatory, AC contraindicated secondary to GI bleed GI: Protonix BID, Miralax bowel prep Disposition: Requires inpatient hospitalization. Full Code. Visit type - Emergency Visit Emergency Visit: Yes ED Registration Date: 11/01/16 Care time: The patient presented to the Emergency Department on the above date and was hospitalized for further evaluation of their emergent condition. - New Patient This patient is new to me today: No - Critical Care Critical Care patient: No - Discharge Referral Referred to [facility] Med P.C.: No
--- NOTE | 2016-11-05 13:56 | PATH ---
Surgical Pathology Report Patient Name: GEORGINA CARR Med. Rec. #: [id number] /Age/Gender: 1950 (Age: 66) / F Account: [id number] Location: [facility] MED/SURG Taken: 11/04/2016 Received: 11/04/2016 Reported: 11/05/2016 Physicians: Paxton Rodrigues M.D. Specimen(s) Received A: BX MID ESOPHAGUS B: BX DUODENAL BULB Clinical History Melena Duodenitis, gastritis Final Diagnosis A. ESOPHAGUS, MID, BIOPSY: SQUAMOUS EPITHELIUM WITH CHRONIC INFLAMMATION AND REFLUX TYPE CHANGES. NO EVIDENCE OF EOSINOPHILIC ESOPHAGITIS. B. DUODENAL BULB, BIOPSY: DUODENAL MUCOSA WITH CHRONIC INFLAMMATION, KISHOR GLANDS HYPERPLASIA, AND FOCAL GASTRIC METAPLASIA CONSISTENT WITH PEPTIC DUODENITIS AND FOCAL GASTRIC HETEROTOPIA. NO HISTOLOGIC EVIDENCE OF GLUTEN SENSITIVE ENTEROPATHY (CELIAC DISEASE). Electronically Signed Eleuterio Mcnamara M.D. Gross Description A. Received in formalin, labeled "biopsy midesophagus" are 2 escobedo, irregular portions of soft tissue averaging 0.3 cm in greatest dimension. The specimens are submitted in toto in one cassette. B. Received in formalin, labeled "biopsy duodenal bulb" are 2 escobedo, irregular portions of soft tissue measuring 0.3 and 0.4 cm in greatest dimension. The specimens are submitted in toto in one cassette. 11/04/201611/04/2016
[2016-11-05] MEDS ORDERED: LIDOCAINE HCL/PF 1% SDV 5ML VIAL ONE (14:31)
[2016-11-05] MEDS ORDERED: PROPOFOL 20 ML ONE ×2 (14:31)
--- NOTE | 2016-11-05 15:41 | CONSULT ---
Consult Consult Specialty:: infectious diseases Reason for Consultation:: yeast in sputum - History of Present Illness Chief Complaint: cough copd History of Present Illness: 66 F with h/o severe COPD, HLD, HTN, sent by her PCP for reported melena Ds . She has had "sinusitis" for the past 2 weeks but denies pain meds. She is being treated for COPD with steroids at this time. patients was worked up and was found to have yeast in her sputum patient is a copd and on steroids she had a colonoscopy done today currently she is feeling better and breathing is no problem - History Source History Provided By: Patient Limitations to Obtaining History: No Limitations - Past Medical History Pulmonary: Yes: COPD, O2 Dependent ...: No - Alcohol/Substance Use Hx Alcohol Use: No - Smoking History Smoking history: Current every day smoker Aproximately how many cigarettes per day: 20 Home Medications - Allergies Allergies/Adverse Reactions: Allergies Allergy/AdvReac Type Severity Reaction Status Date / Time Penicillins Allergy Verified 10/31/16 18:47 - Home Medications Home Medications: Ambulatory Orders Amlodipine Besylate 5 mg PO BID 11/01/16 Isosorbide Mononitrate [Isosorbide Mononitrate ER] 60 mg PO 1000 11/01/16 Metoprolol Succinate [Toprol Xl] 50 mg PO 2200 11/01/16 Metoprolol Succinate [Toprol Xl] 100 mg PO 1000 11/01/16 Non-Formulary 1 tab PO 0700 11/01/16 Albuterol 2.5/Ipratropium 0.5 [Duoneb -] 1 amp NEB Q6H PRN #90 amp 11/06/16 Albuterol Sulfate Inhaler - [Ventolin HFA Inhaler -] 1 - 2 inh PO Q4H #1 inhaler 11/06/16 Levofloxacin [Levaquin] 500 mg PO DAILY #2 tablet 11/06/16 Levothyroxine [Synthroid -] 50 mcg PO DAILY@0700 #30 tablet 11/06/16 Nebulizer [Compact Compressor Nebulizer] 1 each MC PRN PRN #1 kit 11/06/16 Nystatin [Mycolog -] 500,000 unit PO TID #21 tablet 11/06/16 Pantoprazole Sodium [Protonix] 40 mg PO BID #60 tablet. 11/06/16 Prednisone 10 mg PO ASDIR #14 tablet 11/06/16 Review of Systems - Review of Systems Constitutional: reports: No Symptoms Eyes: reports: No Symptoms HENT: reports: No Symptoms Neck: reports: No Symptoms Cardiovascular: reports: No Symptoms Respiratory: reports: SOB, SOB on Exertion Gastrointestinal: reports: Abdominal Pain Musculoskeletal: reports: No Symptoms Integumentary: reports: No Symptoms Neurological: reports: No Symptoms Endocrine: reports: No Symptoms Hematology/Lymphatic: reports: No Symptoms Psychiatric: reports: No Symptoms Physical Exam Vital Signs: Vital Signs Temperature 98.5 F 11/05/16 15:20 Pulse Rate 90 11/05/16 15:35 Respiratory Rate 14 11/05/16 15:35 Blood Pressure 107/62 11/05/16 15:35 O2 Sat by Pulse Oximetry (%) 92 L 11/05/16 15:35 Constitutional: Yes: No Distress, Obese Eyes: Yes: Conjunctiva Clear HENT: Yes: Atraumatic, Normocephalic Neck: Yes: Supple Cardiovascular: Yes: Regular Rate and Rhythm Respiratory: Yes: Regular, Poor Air Entry Gastrointestinal: Yes: Normal Bowel Sounds, Soft Musculoskeletal: Yes: WNL Extremities: Yes: WNL Neurological: Yes: Alert, Oriented Psychiatric: Yes: Alert Labs: CBC, BMP 11/05/16 05:35 11/05/16 05:35 Imaging - Results Chest X-ray: Report Reviewed, Image Reviewed Cat Scan: Report Reviewed, Image Reviewed Assessment/Plan 66yF with PMH HTN, HLD, Hypothyroidism who presented to the ED with melena and dyspnea on exertion and hypoxia. She is being admitted for COPD exacerbation and GI bleed. COPD exacerbation Melena/GI bleed HTN HLD yeast in sputum plan currently will hold off on starting anything patient to follow up with pcp if patient detoriates then will have to see what species it is rest ct current monitoring
[2016-11-05] MEDS: METOPROLOL SUCCINATE 50 MG TAB.SR.24H (FP) PO SCH (21:45)
[2016-11-06] MEDS: ALBUTEROL SO4 2.5/IPRATROPIUM 0.5 INH SOL 3 ML VIAL.NEB. NEB SCH ×3 (02:30→09:14)
[2016-11-06] MEDS: NYSTATIN 500,000 UNITS TABLET PO SCH (06:09)
[2016-11-06] MEDS: LIOTHYRONINE SODIUM 5 MCG TABLET PO SCH (06:09)
[2016-11-06] MEDS: LEVOTHYROXINE NA 50 MCG TABLET (FP) PO SCH (06:10)
[2016-11-06 07:46] LABS: BASOPHIL 0.1 % (0-2.0); MCHC 33.6 g/dl (32.0-36.0); MEAN CELL VOLUME 95.3 fl (80-96); MEAN PLT VOLUME 7.8 fl (7.5-11.1); NEUTROPHILS 78.9 % (42.8-82.8); PLATELET COUNT 233 K/MM3 (134-434); RDW 12.6 % (11.6-15.6); WHITE BLOOD COUNT 8.6 K/mm3 (4.0-10.0)
[2016-11-06 08:10] LABS: ALBUMIN 3.5 g/dl (3.4-5.0); ANION GAP 6 (8-16); BILIRUBIN,TOTAL 0.7 mg/dL (0.2-1.0); CALCIUM 8.7 mg/dL (8.5-10.1); CO2 33 mmol/L (21-32); CREATININE 0.7 mg/dL (0.55-1.02); GLUCOSE,RANDOM 98 mg/dL (74-106); SGOT/AST 21 U/L (15-37); SGPT/ALT 56 U/L (12-78)
[2016-11-06 08:11] LABS: ALK PHOS 58 U/L (45-117); TOT PROT 6.5 g/dl (6.4-8.2)
[2016-11-06 08:42] VITALS: BP 143/84; PULSE 87; TEMP 97.7
[2016-11-06] MEDS ORDERED: POTASSIUM CHLORIDE TABS 20 MEQ TABLET.ER (FP) PO ONE (09:15)
--- NOTE | 2016-11-06 09:27 | DS ---
[id number] Rate 20 11/06/16 08:42 Blood Pressure 143/84 11/06/16 08:41 O2 Sat by Pulse Oximetry (%) 91 L 11/06/16 08:42 Findings/Remarks: GENERAL: The patient is awake, alert, and fully oriented, in no acute distress. ENT: Ears normal, nares patent, oropharynx clear without exudates, moist mucous membranes. NECK: Trachea midline, full range of motion, supple. LUNGS: Bilateral lung sounds clear. No wheezing. HEART: Regular rate and rhythm, S1, S2 without murmur, rub or gallop. ABDOMEN: Soft, distended, + bowel sounds EXTREMITIES: 2+ pulses, warm, well-perfused. NEUROLOGICAL: Normal speech, gait not observed. Labs: CBC, BMP 11/06/16 06:00 11/06/16 06:00 Discharge Summary Reason For Visit: COPD EXACERBATION MELENA Current Active Problems Acute exacerbation of chronic obstructive pulmonary disease (COPD) (Acute) Melena (Acute) Hospital Course: Pre/post O2 saturation: O2 at rest on room air: 87% Unable to ambulate without O2 due to low O2 saturation at rest Walking O2 with 3L NC 92% Discussed home O2 with social staff worker, will set up Condition: Improved - Instructions Diet, Activity, Other Instructions: Please return to the ED with new, persistent, or worsening symptoms. Please follow-up with providers as indicated Steroid taper: Take 20mg by mouth twice a day for two days, then take 10mg by mouth twice a day for two days, then take 10mg by mouth daily for 2 days. Please complete full course of antibiotics. Referrals: Mehdi Goff MD [Staff Physician] - (Please follow-up with Dr. Goff within 2- 3 days for further management of your COPD) Paxton Rodrigues MD [Staff Physician] - (Please follow-up with GI within 3-5 days for your colonoscopy biopsy results) Marvel Chen MD [Primary Care Provider] - (Please follow-up with your pcp within 3 weeks to have your TSH rechecked) Disposition: HOME - Home Medications Comprehensive Discharge Medication List: Ambulatory Orders Amlodipine Besylate 5 mg PO BID 11/01/16 Isosorbide Mononitrate [Isosorbide Mononitrate ER] 60 mg PO 1000 11/01/16 Levothyroxine [Synthroid -] 75 mcg PO 0700 11/01/16 Liothyronine Sodium [Cytomel -] 5 mcg PO 0700 11/01/16 Metoprolol Succinate [Toprol Xl] 50 mg PO 2200 11/01/16 Metoprolol Succinate [Toprol Xl] 100 mg PO 1000 11/01/16 Non-Formulary 1 tab PO 0700 11/01/16 This patient is new to me today: Yes Date on this admission: 11/06/16 Emergency Visit: Yes ED Registration Date: 11/01/16 Care time: The patient presented to the Emergency Department on the above date and was hospitalized for further evaluation of their emergent condition. Critical Care patient: No - Discharge Referral Referred to [facility] Med P.C.: No
[2016-11-06] MEDS: METOPROLOL SUCCINATE 100 MG TAB.SR.24H (FP) PO SCH (09:33)
[2016-11-06] MEDS: PANTOPRAZOLE SODIUM 100 ML IVPB SCH (09:34)
[2016-11-06] MEDS: LEVOFLOXACIN 500 MG IVPB 100 ML IVPB SCH (09:35)
[2016-11-06] MEDS: methylPREDNISolone NA SUCC 40 MG/1 ML VIAL IVPB SCH (09:36)
[2016-11-06] MEDS: ISOSORBIDE MONONITRATE 60 MG TAB.SR.24H (FP) PO SCH (09:36)
[2016-11-06] MEDS ORDERED: amLODIPine BESYLATE 5 MG TABLET (FP) PO SCH (10:00)
--- NOTE | 2016-11-07 13:40 | PATH ---
Surgical Pathology Report Patient Name: GEORGINA CARR [facility]. Rec. #: [id number] /Age/Gender: 1950 (Age: 66) / F Account: [id number] Location: [facility] MED/SURG Taken: 11/05/2016 Received: 11/06/2016 Reported: 11/07/2016 Physicians: Angel Plasencia M.D. Specimen(s) Received A: RECTAL POLYP B: DISTAL SIGMOID COLON POLYP C: BX HEPATIC FLEXURE D: PROXIMAL SIGMOID COLON POLYP E: MID SIGMOID COLON POLYPS Clinical History Melena Diverticulosis, ischemia, hepatic flexure, colonic polyps Final Diagnosis A. RECTUM, POLYP, POLYPECTOMY: HYPERPLASTIC POLYP. B. COLON, DISTAL SIGMOID POLYP, POLYPECTOMY: TUBULAR ADENOMA. Comment: The cauterized margin of resection appears free of adenoma; however, the completeness of resection is best assessed endoscopically. C. COLON, HEPATIC FLEXURE, BIOPSY: COLONIC MUCOSA WITH FOCAL SURFACE ULCERATION, LAMINA PROPRIA FIBROSIS, FIBRIN THROMBI AND FOCAL HEMORRHAGE CONSISTENT WITH ISCHEMIC INJURY. NO EVIDENCE OF GRANULOMATA, DYSPLASIA/ADENOMA OR CARCINOMA. D. COLON, PROXIMAL SIGMOID, POLYP, POLYPECTOMY: MULTIPLE FRAGMENTS OF TUBULAR ADENOMA. E. COLON, MID SIGMOID, POLYPS, POLYPECTOMY: FRAGMENTS OF TUBULAR ADENOMA x2. Electronically Signed Eleuterio Mcnamara M.D. Gross Description A. Received in formalin, labeled "rectal polyp" is a escobedo, irregular portion of soft tissue measuring 0.2 cm in greatest dimension. The specimen is submitted in toto in one cassette. B. Received in formalin, labeled "distal sigmoid colon polyp" is a 0.7 x 0.5 x 0.3 cm escobedo, polypoid portion of soft tissue which is submitted in toto in one cassette. C. Received in formalin, labeled "biopsy hepatic flexure" are 2 escobedo, irregular portions of soft tissue averaging 0.1 cm in greatest dimension. The specimens are submitted in toto in one cassette. D. Received in formalin, labeled "proximal sigmoid colon polyp" are 4 escobedo, irregular portions of soft tissue ranging from 0.2-0.3 cm in greatest dimension. The specimens are submitted in toto in one cassette. E. Received in formalin, labeled "mid sigmoid colon polyps," are 2 escobedo, polypoid portions of soft tissue measuring 0.4 x 0.3 x 0.2 cm and 0.5 x 0.4 x 0.3 cm. The specimens are submitted in toto in one cassette. 11/06/201611/06/2016
== END 2016-11-06 13:23 | disposition home or self-care (01) | DRG 378 ==
LOC: JER 18:43 → JERBED 11-01 02:49 → J7W 11-01 13:04
PROVIDERS: ADMIT Internal Medicine; ATTEND Registered Nurse
PROC: 0DB98ZX Excision of Duodenum, Via Natural or Artificial Opening Endoscopic, Diagnostic (ICD-10-PCS; principal; 2016-11-04 07:30)
PROC: 0D5Q8ZZ Destruction of Anus, Via Natural or Artificial Opening Endoscopic (ICD-10-PCS; 2016-11-05)
PROC: 0DBN8ZX Excision of Sigmoid Colon, Via Natural or Artificial Opening Endoscopic, Diagnostic (ICD-10-PCS; 2016-11-05)
DX: K92.1 Melena (principal); J44.1 Chronic obstructive pulmonary disease with (acute) exacerbation; B37.81 Candidal esophagitis; K63.3 Ulcer of intestine; I10 Essential (primary) hypertension; E78.5 Hyperlipidemia, unspecified; E03.9 Hypothyroidism, unspecified; F17.200 Nicotine dependence, unspecified, uncomplicated; K29.80 Duodenitis without bleeding; R09.02 Hypoxemia; K57.30 Diverticulosis of large intestine without perforation or abscess without bleeding; D12.5 Benign neoplasm of sigmoid colon; K62.1 Rectal polyp; E66.8 Other obesity; Z68.33 Body mass index [BMI] 33.0-33.9, adult; Z71.3 Dietary counseling and surveillance; Z88.0 Allergy status to penicillin; Z99.81 Dependence on supplemental oxygen
CPT/HCPCS: 36415; 71020-TC; 71260-TC; 80048; 80053; 82272; 82550; 83735; 84100; 84443; 84484; 85025; 85610; 86850; 86900; 86901; 87070; 87205; 88305-TC; 93005; 93010; 94640; 94761; 99284-25

== ENCOUNTER 2024-07-28 09:37 | Day surgery (SDC) | payer OTHER, BC ==
[2024-07-22 11:18] VITALS: BMI 37.8
[2024-07-28] MEDS ORDERED: MIDAZOLAM HCL 2 MG/2 ML SINGLE DOSE VIAL ONE (09:54)
[2024-07-28] MEDS: PHENYLEPHRINE 2.5% OPTHALMIC DROP 2ML BOTTLE ONE (10:40)
[2024-07-28] MEDS: TROPICAMIDE 1% OPHTH SOLN 15 ML BOTTLE ONE (10:40)
[2024-07-28] MEDS: CIPROFLOXACIN 0.3% EYE DROPS 5 ML BOTTLE ONE (10:40)
[2024-07-28] MEDS: CYCLOPENTOLATE 2% OPHTH SOLN 2 ML BOTTLE ONE (10:40)
[2024-07-28] MEDS ORDERED: LIDOCAINE 1% P/F 10 MG/ML VIAL ONE (11:08)
[2024-07-28] MEDS ORDERED: BSS (NA/CA/MG/K) BALANCED SALT SOLUTION OPHTH SOLN 15 ML BOTTLE ONE (11:08)
[2024-07-28] MEDS ORDERED: TETRACAINE 0.5% OPHTH SOLN 2 ML BOTTLE ONE (11:08)
[2024-07-28] MEDS ORDERED: CARBACHOL 0.01% INTRA-OCULAR 1.5 ML VIAL ONE (11:08)
[2024-07-28] MEDS ORDERED: NEO/POLYMYX B SULF/DEXAMETH OPHTHALMIC 5ML BOTTLE ONE (11:08)
[2024-07-28] MEDS ORDERED: EPINEPHrine/PF 1 MG/1 ML (1:1,000) AMPULE ONE (11:30)
[2024-07-28 12:50] VITALS: RESP 18; TEMP 97.4
[2024-07-28 14:05] VITALS: BP 122/74; PULSE 76
== END 2024-07-28 12:52 | disposition left against medical advice (07) ==
LOC: FASU 09:37
PROVIDERS: ATTEND Ophthalmology
PROC: 08RJ3JZ Replacement of Right Lens with Synthetic Substitute, Percutaneous Approach (ICD-10-PCS; principal; 2024-07-28 11:27)
DX: H26.8 Other specified cataract (principal)
CPT/HCPCS: 66984; V2632; 82962